=== PATIENT | male | born 2000 | race Caucasian/White ===

== ENCOUNTER 2025-07-18 15:02 | Emergency (ER) | payer SELFPAY ==
--- NOTE | ~2025-07-18 | XR_ITS ---
EXAM/ PROCEDURE: XR hand LT min 3V - 07/18/2025 15:16 CDT HISTORY: 25 years old Male with pain after banging hands on a stall, pain since last night COMPARISON: None available TECHNIQUE: Three view(s) FINDINGS/ IMPRESSION: There are no fractures or dislocations.Joint spaces are within normal limits. Reviewed, dictated and finalized at location N.
--- NOTE | 2025-07-18 15:10 | ED.UPPEXIN ---
HPI - Extremity Injury (Upper) General Chief Complaint: Extremity Injury, Upper Stated Complaint: L Hand Pain Time Seen by Provider: 07/18/25 15:10 Source: patient Mode of arrival: ambulatory Limitations: no limitations History of Present Illness HPI narrative: 25-year-old male presented for complaint of left hand pain following injury last night. He states he was mad and struck the hands on a bathroom stall while walking. Endorses pain is worse to the 5th knuckle, with mild swelling, decreased ROM and bruising. Has not taken anything for pain. Denies numbness, tingling or deformity. Has not taken anything for pain. Related Data Home Medications ?Medication ?Instructions ?Recorded ?Confirmed ?Last Taken ?Type No Home Medications 01/28/22 07/18/25 Unknown History Allergies Allergy/AdvReac Type Severity Reaction Status Date / Time No Known Allergies Allergy Mild Verified 07/18/25 15:16 Review of Systems Review of Systems: CONSTITUTIONAL: Denies body aches, fever, chills EYES: Denies visual changes ENT: Denies rhinorrhea, congestion CARDIOVASCULAR: Denies chest pain, palpitations, or edema. RESPIRATORY: Denies cough or dyspnea. SKIN: Denies rash, itching, or wounds. MUSCULOSKELETAL: reports left hand pain NEUROLOGIC: Denies headache, numbness, tingling, or weakness. All systems reviewed & are unremarkable except as noted in HPI and below PMFSH Surgical History Surgical History History of ankle surgery 2017 History of placement of ear tubes Family History Family History Mother Breast cancer Father Heart disease Social History Social History Smoking status: Current every day smoker Tobacco type: cigarettes and e-cigarettes/vaping Alcohol intake: current Alcohol use details: Socially Occupation/Education: student Gender identity (if verbalized by the patient): Male Comments At time of signature, I have reviewed and agree with nursing past medical, surgical, social and family history unless otherwise noted. Please see nursing chart for further information. There is no relevant family history pertinent to the presenting complaint Exam Narrative: GENERAL: Well-appearing, well-nourished, and in no acute distress. CHEST: Speaks in full sentences. No respiratory distress. HEART: Regular rate and rhythm. Normal and equal peripheral pulses. EXTREMITIES: Left hand has normal strength and sensation, normal range of motion but endorses pain with movement of left 5th digit. Mild swelling and tenderness to 5th mtp with mild bruising. No open wounds, or obvious deformity; alignment normal, pulse palpable and equal bilaterally, skin warm, dry, pink. Capillary refill less than 3 seconds. SKIN: Warm, dry NEURO: Alert and oriented x3. PSYCH: Normal mood and affect Course Course Emergency Course: Patient is aware of diagnosis, understands and agrees to treatment plan. Anticipatory guidance given. Patient agrees to follow-up as directed and is aware of reasons to seek care at the emergency department. Portions of this record may have been created with voice recognition software Level of Care: Express Care Visit Vital Signs Vital signs: Reviewed MDM - Extremity Injury (Upper) MDM Narrative Medical decision making narrative: Discussed physical exam findings and xray. Declined HOMERO. Advised supportive measures and signs/symptoms to go to the ER. Pt is appropriate for outpt treatment and f/u. Differential Diagnosis Differential diagnosis: Likely other (hand contusion, fracture, dislocation, sprain) Imaging Data Radiologist's impression: Patient: Zeyad Lizama : 2000 MR#: [id number] Age: 25 Acct:[id number] Loc: [facility] ADM Date: 07/18/25Attending Dr: EXAM/ PROCEDURE: XR hand LT min 3V - 07/18/2025 15:16 CDT HISTORY: 25 years old Male with pain after banging hands on a stall, pain since last night COMPARISON: None available TECHNIQUE: Three view(s) FINDINGS/ IMPRESSION: There are no fractures or dislocations.Joint spaces are within normal limits. Discharge Plan Discharge Clinical Impression: Contusion of hand Patient Disposition: Home Condition: Stable Instructions: Antibiotic Form, Contusion in Adults (ED) Additional Instructions: Rest; activity as tolerated Ice and elevate the left hand to reduce swelling Keep it wrapped with HOMERO or use a soft ankle splint Motrin 800mg every 8 hours, alternate with Tylenol 1000mg every 8 hours as needed Follow up with your primary care provider as needed Go to the ER for worsening symptoms or concerns Patient Language: Bengali Prescriptions: No Action No Home Medications Follow-up/Referrals: PHYSICIAN,PARTNERSHIP DEVELOPMENT MANAGER [Primary Care Provider, Internal Medicine] Time of Disposition: 15:47
[2025-07-18 15:17] VITALS: BP 151/86; PULSE 97; RESP 16; TEMP 36.8; O2SAT 98
== END 2025-07-18 15:52 | disposition home or self-care (01) ==
PROVIDERS: Emergency Provider Nurse Practitioner Family
DX: S60.222A Contusion of left hand, initial encounter (principal); F17.210 Nicotine dependence, cigarettes, uncomplicated; W22.09XA Striking against other stationary object, initial encounter
CPT/HCPCS: 73130; 99213; G0463